=== PATIENT | male | born 1955 | race Caucasian/White ===

== ENCOUNTER → 2017-07-11 | Outpatient (CLI) | payer OTHER ==
[~2017-07-11] MED LIST: ASPIRIN 81M81 MG/TA2 PO; CLARITIN-D 10 M1 T24 PO; NORCO 325 MG-7.1 TAB PO; PRILOTC PO; ROXICODONE 55 MG/TAB PO
== END ==
LOC: COL.LAB 10:44
DX: Z01.812 Encounter for preprocedural laboratory examination (principal)

== ENCOUNTER 2018-01-30 10:49 | Inpatient (IN) | payer OTHER ==
[~2018-01-30] VITALS: Ht 180.3 cm; Wt 117.0 kg
[2018-02-05] VITALS (12 sets, daily range): BP systolic 113–131; BP diastolic 63–78; PULSE 49–82; TEMP 97.4–98.5
[2018-02-05] MEDS ORDERED: PRIL40 PO (06:57)
[2018-02-05] MEDS ORDERED: VITAMIND3 5000 PO (06:58)
[2018-02-05] MEDS ORDERED: MULTIPLE VITAMI1 CAP PO (06:59)
[2018-02-06 03:47] VITALS: BP 116/58; PULSE 71; TEMP 98.3
[2018-02-06 07:02] LABS: BASO % 0.2 % (0.0-2.0); GRAN # 13.6 (1.4-6.5); GRAN % 83.4 % (42.2-75.2); HEMATOCRIT 37.7 % (42.0-52.0); HEMOGLOBIN 12.5 g/dl (13.5-18.0); LYMPH # 1.2 (1.2-3.4); LYMPH % 7.4 % (20.0-51.0); MEAN CELL VOLUME 91 fl (80.0-100.0); MEAN CORPUSCULAR HEMOGLOBIN 30 pg (27.0-31.0); MEAN CORPUSCULAR HGB CONC 33 g/dl (33.0-37.0); MEAN PLATELET VOLUME 10.8 fl (7.4-10.4); MONO # 1.4 (0.1-0.6); MONO % 8.6 % (1.7-9.3); PLATELET COUNT 235 K/mm3 (130-400); RED BLOOD COUNT 4.16 M/mm3 (4.20-5.60); REDCELL DISTRIBUTION WIDTH-CV 14.6 % (11.5-14.5)
[2018-02-06 07:18] LABS: CALCIUM 8.9 mg/dL (8.4-10.2); CREATININE, serum 1.79 mg/dL (0.66-1.25); POTASSIUM 4.2 mmol/L (3.4-5.0)
[2018-02-06 07:25] VITALS: BP 125/59; PULSE 67; TEMP 98.9
[2018-02-06 11:56] VITALS: BP 109/57; PULSE 65; TEMP 98.2
[2018-02-06 16:15] VITALS: BP 116/59; PULSE 69; TEMP 98.5
[2018-02-06 19:44] VITALS: BP 132/68; PULSE 62; TEMP 98.1
[2018-02-07 00:23] VITALS: BP 129/76; PULSE 56; TEMP 98
[2018-02-07 05:00] VITALS: BP 141/88; PULSE 58; TEMP 98
[2018-02-07 07:13] LABS: CALCIUM 8.9 mg/dL (8.4-10.2); CREATININE, serum 1.73 mg/dL (0.66-1.25)
[2018-02-07 08:22] VITALS: BP 131/72; PULSE 61; TEMP 98.2
== END 2018-02-07 09:56 | disposition home or self-care (01) | DRG 658 ==
LOC: INPTSU 02-05 05:33 → JCC 02-05 05:33 → SURG 02-05 07:30 → JCC 02-05 11:00
PROVIDERS: Urology
PROC: 0TT00ZZ Resection of Right Kidney, Open Approach (ICD-10-PCS; principal; 2018-02-05 07:30)
DX: C64.1 Malignant neoplasm of right kidney, except renal pelvis (principal); J30.9 Allergic rhinitis, unspecified; K21.9 Gastro-esophageal reflux disease without esophagitis; I10 Essential (primary) hypertension; G47.30 Sleep apnea, unspecified; M19.90 Unspecified osteoarthritis, unspecified site
CPT/HCPCS: A4314; A9284; J0330; J1100; J1170; J1650; J1885; J2250; J2370; J2405; J2704; J2795; J3010; J7120

== ENCOUNTER 2020-06-08 17:37 | Observation (INO) | payer BC ==
[~2020-06-08] VITALS: Ht 177.8 cm; Wt 113.7 kg
[~2020-06-08 17:37] MED LIST changes: +MULTIPLE VITAMI1 CAP PO; +PRIL40 PO; +VITAMIND3 5000 PO
[2020-06-08 19:07] LABS: BASO # 0.1 (0.0-0.2); BASO % 0.6 % (0.0-2.0); GRAN # 6.7 (1.4-6.5); GRAN % 67.2 % (42.2-75.2); HEMATOCRIT 44.6 % (42.0-52.0); HEMOGLOBIN 14.9 g/dl (13.5-18.0); LYMPH # 2.2 (1.2-3.4); LYMPH % 21.9 % (20.0-51.0); MEAN CELL VOLUME 90 fl (80.0-100.0); MEAN CORPUSCULAR HEMOGLOBIN 30 pg (27.0-31.0); MEAN CORPUSCULAR HGB CONC 33 g/dl (33.0-37.0); MEAN PLATELET VOLUME 10.4 fl (7.4-10.4); MONO % 9.8 % (1.7-9.3); PLATELET COUNT 264 K/mm3 (130-400); RED BLOOD COUNT 4.96 M/mm3 (4.20-5.60); REDCELL DISTRIBUTION WIDTH-CV 13.8 % (11.5-14.5)
[2020-06-08 19:13] LABS: ALBUMIN 4.5 gm/dL (3.5-5.0); BILIRUBIN,TOTAL 0.4 mg/dL (0.0-1.0); CALCIUM 9.7 mg/dL (8.4-10.2); CREATININE, serum 1.91 (0.66-1.25); POTASSIUM 4.2 mmol/L (3.4-5.0)
[2020-06-08 19:24] LABS: TROPONIN-I 0.034 ng/mL (0.000-0.035)
[2020-06-08] MEDS ORDERED: ZYRTEC-D 5 MG-11 TER PO (21:26)
[2020-06-08] MEDS ORDERED: FLONASEALLERGY NS (21:27)
[2020-06-08] MEDS ORDERED: VITAMIN B COMPL1 SGL PO (21:27)
[2020-06-08] MEDS ORDERED: SINGULAIR 110 MG/TAB PO (21:27)
--- NOTE | 2020-06-08 22:00 | NUR ---
Patient to medical room 315 at approximately this time. He is alert and oriented and ambulates steadily by himself. He has no complaints of angina or palpitations at this time. Dependent lower extremity edema is present with no pitting. Hand substance abuse counselor are equal and pulses are palpable. Heparin drip infusing at 10 ml/hr; Will monitor HepXa labs and titrate as needed.
[2020-06-08 22:03] LABS: PROTHROMBIN TIME 11.4 SECONDS (9.7-12.8)
[2020-06-08 22:05] LABS: PARTIAL THROMBOPLASTIN TIME 30.7 SECONDS (26.0-37.0)
[2020-06-08 22:09] VITALS: BP 129/65; PULSE 68; TEMP 98.1
[2020-06-08] MEDS ORDERED: VITAMIN D250 MCG PO (22:34)
[2020-06-08 23:03] LABS: COLLECTION METHOD CLEAN CATCH
[2020-06-08 23:16] LABS: MUCOUS Present /lpf; PH 5 (5-8); SQUAMOUS EPITHELIAL None Seen /hpf; URINE APPEARANCE Clear; URINE BACTERIA None Seen /hpf; URINE BILIRUBIN Negative (NEGATIVE); URINE BLOOD 1+ (NEGATIVE); URINE COLOR Yellow; URINE GLUCOSE Negative (NEGATIVE); URINE KETONE Negative (NEGATIVE); URINE LEUKOCYTE ESTERASE Negative (NEGATIVE); URINE NITRATE Negative (NEGATIVE); URINE PROTEIN(semi-quant) 1+ (NEGATIVE); URINE RBC 0-2 /hpf; URINE UROBILINOGEN Negative (NEGATIVE)
[2020-06-08 23:31] LABS: MAGNESIUM 1.9 mg/dL (1.6-2.3)
--- NOTE | 2020-06-08 23:45 | NUR ---
HepXa result 0.62 at this time. Per protocol, heparin drip is titrated from 10 ml/hr to 9 ml/hr. Next check is at 0540. Will continue to monitor.
[2020-06-08 23:47] LABS: TROPONIN-I 3 HR POST INITIAL 0.041 ng/mL (0.000-0.034)
[2020-06-09] VITALS (9 sets, daily range): BP systolic 107–140; BP diastolic 60–79; PULSE 54–86; TEMP 97.4–98.2
--- NOTE | 2020-06-09 05:47 | NUR ---
Patient currently resting in bed. He is using his home CPAP. Fluids infusing and heparin infusing at 9 ml/hr. Patient has been NPO since midnight.
[2020-06-09 06:54] LABS: BASO # 0.1 (0.0-0.2); BASO % 0.7 % (0.0-2.0); EOS % 0.4 % (0-4.0); GRAN # 3.4 (1.4-6.5); GRAN % 48.1 % (42.2-75.2); HEMATOCRIT 39.6 % (42.0-52.0); LYMPH # 2.7 (1.2-3.4); LYMPH % 38.4 % (20.0-51.0); MEAN CELL VOLUME 92 fl (80.0-100.0); MEAN CORPUSCULAR HEMOGLOBIN 30 pg (27.0-31.0); MEAN CORPUSCULAR HGB CONC 33 g/dl (33.0-37.0); MEAN PLATELET VOLUME 10.2 fl (7.4-10.4); MONO # 0.8 (0.1-0.6); MONO % 11.8 % (1.7-9.3); PLATELET COUNT 215 K/mm3 (130-400); RED BLOOD COUNT 4.31 M/mm3 (4.20-5.60)
[2020-06-09 07:06] LABS: CALCIUM 8.9 mg/dL (8.4-10.2); CHOLESTEROL RISK RATIO 4.8; CREATININE, serum 1.72 (0.66-1.25); POTASSIUM 4.1 mmol/L (3.4-5.0)
[2020-06-09 07:17] LABS: TROPONIN-I 0.021 ng/mL (0.000-0.035)
--- NOTE | 2020-06-09 08:07 | NUR ---
Pt assessment complete. Pt is ambulating in room upon entry, he is A/O x4. His breathing is even and unlabored on RA. Denies SOB, dizziness or chest pain. Pt asking about heart cath timing etc,. Spoke with with labor conciliator who is aware of patient but has not scheduled him at this time. Pt and his updated. Heparin drip adjusted per protocol. No needs at this time. Call light within reach.
--- NOTE | 2020-06-09 09:52 | NUR ---
Vocational Rehabilitation Counselor attended clinical rounds with the team and patient to have heart cath today. Following rounds, SW met with patient to discuss discharge planning. Patient lives in [place] with his , Migdalia (ph#[phone]) and sees Dr. Dyson for primary care. Patient obtains his medications from [facility] with no difficulties. Patient uses a CPAP and no other DME. Patient is independent with ADLS and plans to return home upon discharge. Patient does not have Advance Directives and was not interested in designating DPOA-HC at this time. Patient states he is fine with his , Migdalia making medical decisions for him as she is his legal next of kin. SW contacted patient's , Migdalia to review discharge plan. Migdalia is in agreement with patient returning home upon discharge. SW will continue to follow as needed.
--- NOTE | 2020-06-09 13:30 | NUR ---
First visit from the research center director. No needs right now.
--- NOTE | 2020-06-09 18:12 | NUR ---
Pt had EGD today, recovered well. Tolerating clear liquids without issues. No pain. COVID repeat negative, patient moved to room 359. Amiodarone bolus administered by Kelp Cutter Migdalia. Pt tolerated this without any issues, to receive first PO dose tonight. Pt resting comfortably at this time. Call light within reach.
--- NOTE | 2020-06-09 18:17 | NUR ---
Pt did not have heart cath today. Plan to stay overnight with heparin drip discussed with patient. He is agreeable. No chest pain or irregular events through the day. Pt has no needs at this time. Call light within reach.
--- NOTE | 2020-06-09 20:00 | NUR ---
Assessment complete. Patient has no complaints of chest pain or feeling of palpitations. No edema is present and lung sounds are clear. Heart rate is normal and regular. Heparin drip titrated from 10.5 ml/hr to 9.5 ml/hr per protocol. Next HepXA lab ordered for 06/10/20 0130. Will continue to monitor.
[2020-06-10 04:06] VITALS: BP 108/63; PULSE 58; TEMP 97.5
[2020-06-10 08:20] VITALS: BP 127/90; PULSE 60; TEMP 97.8
[2020-06-10 08:28] LABS: BASO % 0.7 % (0.0-2.0); EOS # 0.1 (0.0-0.7); EOS % 1.5 % (0-4.0); GRAN # 3.3 (1.4-6.5); GRAN % 55.6 % (42.2-75.2); HEMATOCRIT 41.5 % (42.0-52.0); HEMOGLOBIN 13.8 g/dl (13.5-18.0); LYMPH # 1.9 (1.2-3.4); LYMPH % 31.5 % (20.0-51.0); MEAN CELL VOLUME 92 fl (80.0-100.0); MEAN CORPUSCULAR HEMOGLOBIN 31 pg (27.0-31.0); MEAN CORPUSCULAR HGB CONC 33 g/dl (33.0-37.0); MEAN PLATELET VOLUME 10.4 fl (7.4-10.4); MONO # 0.6 (0.1-0.6); PLATELET COUNT 213 K/mm3 (130-400); RED BLOOD COUNT 4.52 M/mm3 (4.20-5.60); REDCELL DISTRIBUTION WIDTH-CV 13.7 % (11.5-14.5)
[2020-06-10 08:37] LABS: CREATININE, serum 1.55 (0.66-1.25); POTASSIUM 4.7 mmol/L (3.4-5.0)
--- NOTE | 2020-06-10 10:39 | NUR ---
pt assessment completed and charted, medications administered per sep. Pt A&O, independent in room, on room air, breathing is even and unlabored. Pt sitting in recliner upon entry. Pt denies any dizziness, SOB, N/V/D, abdominal pain. Pt denies any chest pain or palpitations at this time. Pt has RAC IV w/ IVF and hep gtt running w/o issues. Hep gtt at 9.5 ml/hr, hep xa w/in goal, no recheck in 6 hrs. Pt to possibly discharge this afternoon. No further needs expressed at this time. Call light within reach.
[2020-06-10] MEDS ORDERED: ASPIRIN E.C. 8181 MG PO (11:46)
[2020-06-10] MEDS ORDERED: LIPITOR 40MG TA40 MG PO (11:46)
[2020-06-10] MEDS ORDERED: NITROSTAT0.3 MG SL (11:47)
[2020-06-10 11:50] VITALS: BP 142/87; PULSE 57; TEMP 98.1
--- NOTE | 2020-06-10 14:59 | NUR ---
Pt discharge instructions discussed and reviewed w/ patient who verbalized understanding. All questions answered. Pt discharge medications sent to pharmacy, this nurse contacted pharmacy, they close at 1pm, Diaz from the pharmacy stated he "would deliver to patient". Phone number given to pt and he will call. IV dc'd w/ catheter tip intact and no issues. Pt escorted out via WC. Pt to return for outpt heart cath on Friday through [facility]. Appt at 0630, pt aware, verbalized understanding.
== END 2020-06-10 14:30 | disposition home or self-care (01) ==
LOC: COL.ER 17:37 → MEDICAL 20:07
PROVIDERS: Emergency Medicine; Nurse Practitioner Family; Physician Assistant; ADMIT Hospitalist
DX: I20.0 Unstable angina (principal); E78.5 Hyperlipidemia, unspecified; N18.9 Chronic kidney disease, unspecified; K21.9 Gastro-esophageal reflux disease without esophagitis; Z20.828 Contact with and (suspected) exposure to other viral communicable diseases; Z90.5 Acquired absence of kidney; Z79.51 Long term (current) use of inhaled steroids; Z96.652 Presence of left artificial knee joint; Z87.891 Personal history of nicotine dependence; I08.1 Rheumatic disorders of both mitral and tricuspid valves
CPT/HCPCS: G0378; J1644; J7030

== ENCOUNTER 2020-06-12 06:31 | Day surgery (SDC) | payer BC ==
[~2020-06-12] VITALS: Ht 177.8 cm; Wt 118.7 kg
[2020-06-12] VITALS (13 sets, daily range): BP systolic 109–142; BP diastolic 73–92; PULSE 48–63; TEMP 98.1
[~2020-06-12 06:31] MED LIST changes: +ASPIRIN E.C. 8181 MG PO; +FLONASEALLERGY NS; +LIPITOR 40MG TA40 MG PO; +NITROSTAT0.3 MG SL; +SINGULAIR 110 MG/TAB PO; +VITAMIN B COMPL1 SGL PO; +VITAMIN D250 MCG PO; +ZYRTEC-D 5 MG-11 TER PO
[2020-06-12 07:37] LABS: HEMATOCRIT 41.9 % (42.0-52.0); HEMOGLOBIN 14.2 g/dl (13.5-18.0); MEAN CELL VOLUME 91 fl (80.0-100.0); MEAN CORPUSCULAR HEMOGLOBIN 31 pg (27.0-31.0); MEAN CORPUSCULAR HGB CONC 34 g/dl (33.0-37.0); MEAN PLATELET VOLUME 10.2 fl (7.4-10.4); PLATELET COUNT 219 K/mm3 (130-400); RED BLOOD COUNT 4.63 M/mm3 (4.20-5.60); REDCELL DISTRIBUTION WIDTH-CV 13.6 % (11.5-14.5)
[2020-06-12 07:47] LABS: CALCIUM 9.4 mg/dL (8.4-10.2); CREATININE, serum 1.76 (0.66-1.25); PROTHROMBIN TIME 11.4 SECONDS (9.7-12.8)
[2020-06-12 07:49] LABS: PARTIAL THROMBOPLASTIN TIME 30.2 SECONDS (26.0-37.0)
[2020-06-12] MEDS ORDERED: ASPIRIN E.C. 8181 MG PO (08:26)
[2020-06-12] MEDS ORDERED: LIPITOR 40MG TA40 MG PO (08:29)
[2020-06-12] MEDS ORDERED: NITROSTAT0.4 MG/TAB SL (08:31)
--- NOTE | 2020-06-12 09:50 | NUR ---
Pt to procedure.
--- NOTE | 2020-06-12 10:00 | NUR ---
SEE MEREJAYLEEN FOR ALL MEDICATION ADMIN TIMES, INTRA AND POST SEDATION ASSESSMENTS
--- NOTE | 2020-06-12 15:19 | NUR ---
Discharge instructions given to pt.Pt verbalizes understanding.INT removed,catheter tip intact.Pt escorted out via wheelchair by this nurse.
== END 2020-06-12 16:54 | disposition home or self-care (01) ==
LOC: COL.CAR 06:31
PROVIDERS: Internal Medicine Cardiovascular Disease
DX: I21.4 Non-ST elevation (NSTEMI) myocardial infarction (principal); E78.5 Hyperlipidemia, unspecified; K21.9 Gastro-esophageal reflux disease without esophagitis; G47.33 Obstructive sleep apnea (adult) (pediatric); Z90.5 Acquired absence of kidney; Z96.652 Presence of left artificial knee joint; Z79.82 Long term (current) use of aspirin; Z79.899 Other long term (current) drug therapy
CPT/HCPCS: J1644; J2250; J3010; Q9967

== ENCOUNTER → 2020-10-27 | Outpatient (CLI) | payer BC ==
[~2020-10-27] VITALS: Ht 175.3 cm; Wt 120.9 kg
[~2020-10-27] MED LIST changes: +NITROSTAT0.4 MG/TAB SL
== END ==
LOC: DIET.TELE 12:55 → SUN.CLI 12:55
DX: E78.2 Mixed hyperlipidemia (principal); E66.01 Morbid (severe) obesity due to excess calories; Z68.36 Body mass index [BMI] 36.0-36.9, adult
CPT/HCPCS: 98972

== ENCOUNTER → 2020-11-17 | Outpatient (CLI) | payer BC | LOC: ZCOL.LAB 10:18 | DX: Z20.822 Contact with and (suspected) exposure to COVID-19 (principal) ==